=== PATIENT | male | born 1990 | race Caucasian/White ===

== ENCOUNTER 2021-02-11 01:05 | Emergency (ER) | payer OTHER ==
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
[2021-02-11 01:41] VITALS: BP 138/81
== END 2021-02-11 01:42 | disposition home or self-care (01) ==
LOC: ED 01:05
DX: Z02.89 Encounter for other administrative examinations (principal); M25.531 Pain in right wrist; M25.532 Pain in left wrist
CPT/HCPCS: 99281

== ENCOUNTER 2023-09-16 07:32 | Emergency (ER) | payer OTHER ==
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
[2023-09-16 07:40] VITALS: BP 143/89; O2SAT 100
[2023-09-16] MEDS: LIDOCAINE-EPINEPH-TETRACAINE 3 ML SYRINGE TOP STA (07:43)
[2023-09-16] MEDS: BUFFERED LIDOCAINE 10 ML SYRINGE SUBQ STA (08:05)
[2023-09-16] MEDS: BACITRACIN ZINC OINT 1 PACKET TOP STA (08:32)
== END 2023-09-16 08:41 | disposition home or self-care (01) ==
LOC: EDBD → EDUNIT# → ED 07:32
DX: S01.81XA Laceration without foreign body of other part of head, initial encounter (principal); W22.8XXA Striking against or struck by other objects, initial encounter; Y92.149 Unspecified place in prison as the place of occurrence of the external cause
CPT/HCPCS: 12001; 99282; A9270

== ENCOUNTER 2023-12-04 08:51 | Outpatient (CLI) | payer OTHER ==
[2023-12-04 09:02] LABS: BASOPHILS % (AUTO) 0.8 %; EOSINOPHILS # (AUTO) 0.1 10^3/uL (0.0-0.7); EOSINOPHILS % (AUTO) 1.9 %; HCT - HEMATOCRIT 42.3 % (42.0-52.0); HGB - HEMOGLOBIN 14.4 g/dL (14.0-18.0); LYMPHOCYTES % (AUTO) 42.6 %; MEAN CORPUSCULAR HEMOGLOBIN 29.7 pg (27.0-31.0); MEAN CORPUSCULAR VOLUME 87.2 fL (80.0-94.0); MONOCYTES # (AUTO) 0.6 10^3/uL (0.0-1.0); MONOCYTES % (AUTO) 11.9 %; NEUTROPHILS % (AUTO) 42.4 %; PLT - PLATELET COUNT 268 10^3/uL (130-450); RED BLOOD COUNT 4.85 10^6/uL (4.70-6.10); WHITE BLOOD COUNT 4.8 x10^3/uL (4.8-10.8)
[2023-12-04 09:17] LABS: ALBUMIN/GLOBULIN RATIO 1.7 (1.0-2.2); BILIRUBIN,TOTAL 0.6 mg/dL (0.2-1.0); CALCIUM 9.5 mg/dL (8.5-10.3); CREATININE 0.9 mg/dL (0.6-1.3); POTASSIUM 3.9 mmol/L (3.5-4.5); TOTAL PROTEIN 6.3 g/dL (6.4-8.9)
== END 2023-12-04 08:52 | disposition home or self-care (01) ==
LOC: LAB.R 08:51
PROVIDERS: ATTEND Registered Nurse
DX: R68.89 Other general symptoms and signs (principal); Z13.228 Encounter for screening for other metabolic disorders
CPT/HCPCS: 80053; 85025